=== PATIENT | female | born 1960 | race Two or more races ===

== ENCOUNTER 2020-06-22 18:53 | Emergency (ER) | payer SELFPAY ==
[~2020-06-22] VITALS: Ht 152.4 cm; Wt 69.4 kg
[2020-06-22] MEDS ORDERED: hydrALAZINE HCL 20 MG/ML VL IV ONE (19:15)
[2020-06-22 19:56] LABS: Basophils # (auto) 0.1 10 ^3/uL (0-0.2); Basophils % (auto) 0.9 % (0.0-2.0); Eosinophils # (auto) 0.1 10 ^3/uL (0-0.8); Eosinophils % (auto) 0.8 % (0.0-7.0); Hematocrit 41.1 % (36.0-46.0); Hemoglobin 13.7 g/dL (12.2-16.2); Lymphocytes # (auto) 1.6 10 ^3/uL (0.4-5.4); Lymphocytes % (auto) 24.3 % (10.0-50.0); Mean Corpuscular Hgb Conc. 33.5 g/dL (32.0-36.0); Mean Corpuscular Volume 89.7 fL (80.0-100.0); Monocytes # (auto) 0.3 10 ^3/uL (0-1.3); Monocytes % (auto) 5.3 % (0.0-12.0); Neutrophils # (auto) 4.5 10 ^3/uL (1.6-8.6); Neutrophils % (auto) 68.7 % (37.0-80.0); Nucleated Red Blood Cells % 0.3 %; Platelet Count (auto) 299 10^3/uL (140-450); Red Blood Cells 4.58 10^6/uL (4.0-5.20); Red Cell Distribution Width 13.7 % (11.8-14.3); White Blood Cell 6.6 10^3/uL (4.4-10.8)
[2020-06-22 20:17] LABS: Albumin 3.6 g/dL (3.4-5.0); Anion Gap 5 (5-15); Blood Urea Nitrogen 17 mg/dL (7-18); Calcium 8.3 mg/dL (8.5-10.1); Carbon Dioxide 27 mmol/L (21-32); Chloride 110 mmol/L (98-107); Glucose 112 mg/dL (74-106); Sodium 142 mmol/L (136-145)
[2020-06-22 20:23] LABS: Alanine Aminotransferase 23 U/L (13-56); Alkaline Phosphatase 118 U/L (45-117); Aspartate Aminotransferase 18 U/L (15-37); BUN/Creatinine Ratio 20.7; Bilirubin, Total 0.3 mg/dL (0.2-1.0); GFR African American 91 mL/min; GFR Non-African American 75 mL/min; Total Protein 7.6 g/dL (6.4-8.2)
[2020-06-22 21:39] LABS: INR 0.97 (0.9-1.15); Partial Thromboplastin Time 28.5 sec (23.0-31.2)
[2020-06-22 23:18] VITALS: BP 169/85
== END 2020-06-22 23:39 | disposition home or self-care (01) ==
LOC: ER 18:55
DX: R55 Syncope and collapse (principal); I10 Essential (primary) hypertension; I63.81 Other cerebral infarction due to occlusion or stenosis of small artery; D32.9 Benign neoplasm of meninges, unspecified
CPT/HCPCS: 36415; 70450; 70486; 71045; 80053; 83735; 84484; 85025; 85610; 85730; 93005; 96374; 99285; J0360